=== PATIENT | male | born 1945 | race Caucasian/White ===

== ENCOUNTER 2017-02-06 05:42 | Day surgery (SDC) | payer MEDICAID, OTHER ==
[2017-02-06] VITALS (12 sets, daily range): BP systolic 130–188; BP diastolic 21–89; PULSE 59–70; RESP 16–20; Ht 162.6 cm; Wt 64.0 kg
[~2017-02-06] VITALS: Ht 162.6 cm; Wt 64.0 kg
[~2017-02-06 05:42] MED LIST: ASPI-664 PO; DOCU-159 PO; ENAL5TAB PO
[2017-02-06 06:33] LABS: ADD SCAN DIFF NO
[2017-02-06] MEDS ORDERED: ASPI81TA3 PO (06:35)
[2017-02-06] MEDS ORDERED: CILO50TA PO (06:35)
[2017-02-06] MEDS ORDERED: AMLO2.5T78 PO (06:35)
[2017-02-06 06:42] LABS: BASOPHIL # 0.1 10^3/ul (0.0-0.1); EOSINOPHILS # 0.3 10^3/ul (0.0-0.5); EOSINOPHILS % 2.5 % (0.0-7.0); HEMATOCRIT 42.5 % (42.0-52.0); HEMOGLOBIN 14.1 g/dl (14.0-18.0); LYMPHOCYTES # 3.8 10^3/ul (0.8-2.9); LYMPHOCYTES % 35.7 % (15.0-51.0); MEAN CORPUSCULAR HEMOGLOBIN 30.6 pg (29.0-33.0); MEAN CORPUSCULAR HGB CONC 33.2 g/dl (32.0-37.0); MEAN CORPUSCULAR VOLUME 92.2 fl (82.0-101.0); MEAN PLATELET VOLUME 11.7 fl (7.4-10.4); MONOCYTE # 0.9 10^3/ul (0.3-0.9); MONOCYTES % 8.4 % (0.0-11.0); NEUTROPHIL # 5.5 10^3/ul (1.6-7.5); PLATELET COUNT 213 10^3/UL (140-415); RED BLOOD COUNT 4.61 10^6/ul (4.70-6.10); RED CELL DISTRIBUTION WIDTH 13.3 % (11.5-14.5); WHITE BLOOD COUNT 10.5 10^3/ul (4.8-10.8)
[2017-02-06] MEDS ORDERED: SOD CHLORIDE 0.9% 1,000 ML IV SCH ×2 (07:00→11:35)
[2017-02-06 07:04] LABS: CALCIUM 9.3 mg/dl (8.4-10.2); CREATININE 0.97 mg/dl (0.61-1.24); POTASSIUM 4.6 mmol/L (3.5-5.1)
[2017-02-06 07:17] LABS: INR 0.98
[2017-02-06 07:24] LABS: PARTIAL THROMBOPLASTIN TIME 37.1 Sec (25.0-35.0)
[2017-02-06] MEDS ORDERED: LIDOCAINE 1% (MDV) 20 ML INJ ONE (08:25)
[2017-02-06] MEDS ORDERED: IODIXANOL LOCM 100 ML BTL ONE ×3 (08:26→11:03)
[2017-02-06] MEDS ORDERED: MIDAZOLAM 1 MG/ML 2 ML INJ ONE (08:26)
[2017-02-06] MEDS ORDERED: FENTAnyl 50 MCG/ML VIAL ONE (08:26)
[2017-02-06] MEDS ORDERED: IODIXANOL LOCM 50 ML BTL ONE (10:02)
[2017-02-06] MEDS ORDERED: HEPARIN 1000 UNITS/ML 10 ML INJ ONE (10:02)
[2017-02-06] MEDS ORDERED: VERAPAMIL 5 MG INJ ONE (10:07)
[2017-02-06] MEDS ORDERED: NITROGLYCERIN (IC) 100 MCG/ML INJ ONE (10:07)
[2017-02-06] MEDS ORDERED: NITROGLYCERIN 50 MG/D5W (PMX) 250 ML ONE (10:09)
[2017-02-06] MEDS ORDERED: ASPIRIN 325 MG TAB ONE (11:37)
[2017-02-06] MEDS ORDERED: CLOPIDOGREL 300 MG TAB ONE (11:37)
--- NOTE | 2017-02-06 11:38 | PDOCDIS ---
Discharge Instructions CONDITION Patient Condition: Good HOME CARE INSTRUCTIONS: Diet Instructions: Low Fat /Cholesterol ACTIVITY: Activity Restrictions: Avoid heavy lifting (x 4 days) Do not Drive (x 3 days) FOLLOW UP/APPOINTMENTS Appointments Follow up with Dr Zambrano 2-4weeks Follow up with vascular surgeon Dominic Whalen DO February 06, 2017 11:38
[2017-02-06] MEDS ORDERED: ACETAMINOPHEN 325 MG TAB PO PRN (12:00)
[2017-02-06] MEDS ORDERED: ONDANSETRON 4 MG INJ IV PRN (12:00)
[2017-02-06] MEDS ORDERED: AL HYDROX/MG HYDROX/SIMETH 30 ML CUP PO PRN (12:00)
--- NOTE | 2017-02-06 12:56 | CARRPT ---
DATE OF PROCEDURE: 02/06/2017 PROCEDURE: 1. Distal abdominal aortogram and bilateral lower extremity runoff. 2. Bilateral carotid artery angiogram. 3. Third order catheter placement. 4. INTERNET MARKETING DIRECTOR of the left SFA with CSI Orbital Arthrectomy, balloon angioplasty and drug-coated balloon an gioplasty of the mid to distal left SFA. 5. Interpretation and supervision of peripheral and carotid angiogram. 6. Right femoral artery approach. PATIENT HISTORY: This is a 71-year-old male with past medical history of carotid artery disease and peripheral arterial disease with lifestyle limiting claudication, who presents for carotid and lowe r extremity angiogram. FINDINGS: 1. Right innominate demonstrates an 80% proximal stenosis. The right common carotid with a proxima l 100% stenosis reconstitutes in the mid to distal segment of the internal and external carotid. Le ft common carotid demonstrates a mid 20% stenosis, the right external carotid with 10% disease, the right internal carotid with mid 20% stenosis. Cerebral vasculature demonstrates that the left syste m is supplying both hemispheres. 2. Distal abdominal aortogram demonstrated distal aorta with aneurysmal segments. 3. Right side demonstrates ostial common iliac with an 80% stenosis and a mid after the bifurcation of the external and the internal demonstrates the proximal external with a 70% to 80% stenosis wit h an aneurysmal segment proximal and distal to that area of stenosis. Right common femoral demonstr ates 10% stenosis. Right SFA demonstrates a mid 30% stenosis. Right popliteal demonstrates 10% lurdes nosis. The right anterior tibial is a small caliber vessel and diffusely diseased proximally, 90% d iffuse stenosis. The right peroneal and posterior tibial are patent with mild diffuse disease dista lly giving flow down to the ankle as well as helping to reconstitute the right AT. 3. Left lower extremity side: Left common iliac with a proximal 30% stenosis. Left external iliac with no significant disease seen. Left common femoral with no significant disease seen. Left SFA demonstrates a mid to distal calcified diffuse area of stenosis, worst being 90%. Left popliteal wi th 10% diffuse stenosis. Left AT with proximal 80% stenosis, peroneal and posterior tibial with mil d diffuse disease with 2 to 3-vessel runoff to the ankle. DESCRIPTION OF PROCEDURE: The patient was brought in to the lab specialist after informed consent. Right femoral artery access was obtained using ultrasound guidance with a micropuncture needle and a 5-Fr ench sheath was placed. We next did segmental DSA imaging of the right lower extremity. We next we nt up with a 5-Vietnamese JR4 diagnostic catheter and engaged the right innominate as well as the left c ommon carotid, sequentially. Angiogram was performed. There was evidence of 100% occlusion of the right common carotid. Afterwards, we did a distal abdominal aortogram using an Omni Flush 5-Vietnamese catheter. Selective shots were done of the right iliac given this area of stenosis was seen too as well. We next intended going up and over to the left side, but unable with an Omni Flush and a Glid ewire. We next used a rim catheter and with much difficulty, we were able to go up and over down th e left iliac to the left common femoral artery. We next did sequential imaging of the left lower ex tremity down to the ankle. There was evidence of severe stenosis noted in the mid SFA. We next swi tched out for a stiff Glidewire down to the left popliteal. We next took out our rim catheter and t hen switched out our 5-Vietnamese sheath for a 6-Vietnamese x 55 Destination sheath down to the left SFA. S arvind our wire was in the left distal SFA/popliteal, we used an exchange length catheter over the lef t SFA wire. We then switched out for a Viper CSI wire. Heparin was given for anticoagulation prior to this. Our wire was parked in the mid calf. We next used a 1.5 solid CSI and multiple runs were performed in the calcified mid SFA region. We next used a 4.0 balloon and performed angioplasty wi th prolonged inflations. Afterwards, we used a 5 mm x 120 mm Lutonix drug-coated balloon in that re gion prolonged inflation. Post drug-coated balloon demonstrated 10% residual stenosis with no evide nce of dissection with good flow seen and preserved 3-vessel runoff distally. We next pulled our wi re out and catheter. We brought our sheath up to the right common iliac and did a repeat angiogram in that region to further evaluate the right common iliac ostial lesion. We next switched out for a 6-Vietnamese sheath. Then, a Perclose closure device was used in the right femoral artery. The patien t tolerated the procedure well with no immediate complications. DIAGNOSES: 1. Severe peripheral arterial disease. 2. Carotid artery disease. 3. Lifestyle limiting claudication. ESTIMATED BLOOD LOSS: None. BLOOD LOSS: Minimal. RECOMMENDATIONS: Aggressive medical management, risk factor modification with smoking cessation and dual-antiplatelet therapy. Plan for staged intervention of the right external and common iliac. Dictated By: MANISH VELASCO/BRYCE Conf#: [id number] DID#: [id number]
== END 2017-02-06 19:00 | disposition home or self-care (01) ==
LOC: SDS 05:42 → GIL 05:42 → SDS 19:00
PROVIDERS: ATTEND Internal Medicine Cardiovascular Disease
DX: I73.9 Peripheral vascular disease, unspecified (principal); I65.29 Occlusion and stenosis of unspecified carotid artery
CPT/HCPCS: 37225; 80048; 85025; 85610; 85730; J1644; J2250; J3010; J7030; Q9967; Z7610; 75671; C1714; C1725; C1769; C1887; C1894

== ENCOUNTER 2017-04-12 06:16 | Observation (INO) | payer OTHER ==
[~2017-04-12] VITALS: Ht 165.1 cm; Wt 66.0 kg
[2017-04-12] VITALS (22 sets, daily range): BP systolic 110–180; BP diastolic 55–97; PULSE 60–92; RESP 10–34; Ht 165.1 cm; Wt 66.0 kg
[~2017-04-12 06:16] MED LIST changes: +AMLO2.5T78 PO; +ASPI81TA3 PO; +CILO50TA PO
[2017-04-12] MEDS ORDERED: AMLO5TAB4 PO (07:11)
[2017-04-12] MEDS ORDERED: CLOP75TA27 PO (07:12)
[2017-04-12] MEDS ORDERED: ASPI-664 PO (07:12)
[2017-04-12 07:43] LABS: ADD SCAN DIFF NO
[2017-04-12 07:53] LABS: BASOPHIL # 0.1 10^3/ul (0.0-0.1); EOSINOPHILS # 0.3 10^3/ul (0.0-0.5); EOSINOPHILS % 2.6 % (0.0-7.0); HEMATOCRIT 41.2 % (42.0-52.0); HEMOGLOBIN 13.5 g/dl (14.0-18.0); LYMPHOCYTES # 3.3 10^3/ul (0.8-2.9); LYMPHOCYTES % 33.3 % (15.0-51.0); MEAN CORPUSCULAR HEMOGLOBIN 30.7 pg (29.0-33.0); MEAN CORPUSCULAR HGB CONC 32.8 g/dl (32.0-37.0); MEAN CORPUSCULAR VOLUME 93.6 fl (82.0-101.0); MONOCYTE # 0.8 10^3/ul (0.3-0.9); MONOCYTES % 8.2 % (0.0-11.0); NEUTROPHIL # 5.5 10^3/ul (1.6-7.5); NEUTROPHILS % 54.4 % (39.0-77.0); PLATELET COUNT 177 10^3/UL (140-415); RED CELL DISTRIBUTION WIDTH 13.6 % (11.5-14.5)
[2017-04-12 08:07] LABS: INR 0.95; PARTIAL THROMBOPLASTIN TIME 30.9 Sec (25.0-35.0); PROTIME 12.7 Sec (12.2-14.2)
[2017-04-12] MEDS ORDERED: CLOPIDOGREL 300 MG TAB ONE (08:13)
[2017-04-12] MEDS ORDERED: ASPIRIN 325 MG TAB ONE (08:13)
[2017-04-12] MEDS ORDERED: IODIXANOL LOCM 50 ML BTL ONE (08:36)
[2017-04-12] MEDS ORDERED: HEPARIN 1000 UNITS/ML 10 ML INJ ONE ×2 (08:36→10:02)
[2017-04-12] MEDS ORDERED: LIDOCAINE 1% (MDV) 20 ML INJ ONE (08:36)
[2017-04-12] MEDS ORDERED: MIDAZOLAM 1 MG/ML 2 ML INJ ONE ×2 (08:37→10:49)
[2017-04-12] MEDS ORDERED: FENTAnyl 50 MCG/ML VIAL ONE (08:37)
[2017-04-12 08:58] LABS: CALCIUM 9.5 mg/dl (8.4-10.2); CREATININE 1.03 mg/dl (0.61-1.24); POTASSIUM 4.7 mmol/L (3.5-5.1)
[2017-04-12] MEDS ORDERED: IOHEXOL 350MG/ML 50 ML BTL ONE (10:02)
[2017-04-12] MEDS ORDERED: hydrALAzine 20 MG INJ ONE (10:52)
--- NOTE | 2017-04-12 11:12 | RADRPT ---
Vent Rate: 57 bpm RR Interval: 0 msec PA Interval: 166 msec QRS Duration: 100 msec QT Interval: 406 msec QTC Interval: 395 msec P-R-T Palmer: 69 - 55 - 62 degrees Sinus bradycardia Otherwise normal ECG Electronically Signed By: Mehul Louis [id number]
[2017-04-12] MEDS ORDERED: SOD CHLORIDE 0.9% 1,000 ML IV SCH (11:17)
[2017-04-12] MEDS ORDERED: ONDANSETRON 4 MG INJ IV PRN (11:30)
[2017-04-12] MEDS ORDERED: ACETAMINOPHEN 325 MG TAB PO PRN (11:30)
[2017-04-12] MEDS ORDERED: AL HYDROX/MG HYDROX/SIMETH 30 ML CUP PO PRN (11:30)
--- NOTE | 2017-04-12 11:31 | OPR ---
Date/Time of Note Date/Time of Note DATE: 04/12/17 TIME: 11:19 Operative Report Procedure Date: Apr 12, 2017 Preoperative Diagnosis Peripheral arterial disease Lifestyle limiting claudication Operation Performed Selective peripheral angiogram of the right iliac and distal abdominal aorta First order catheter placement Balloon angioplasty of the ostium of the right common iliac and the mid iliac, covered stenting with an 8 x 37 mm Lifestream balloon expandable covered stent of the ostium of the right iliac, mid iliac stenting with a 8 x 60 self- expanding stent Right femoral artery access Conscious sedation Patient was brought to the Hematology Specialist after informed consent. Using ultrasound guidance and micropuncture, right femoral artery access was obtained. 6 [place] sheath was placed. Angiogram was performed which demonstrated 80% stenosis of the ostium of the right common iliac, and 80-90% stenosis of the right proximal external iliac at the bifurcation of the internal iliac. Heparin was used for anticoagulation. Initially a Glidewire was used to cross the lesions and switched out for an Amplatz. Balloon angioplasty was performed of the ostium of the common iliac and then of the mid iliac. We then upsized to a 7 [place] long sheath. We stented the ostium of the right common iliac with a 8 x 37 balloon expandable covered stent. We next stented the mid iliac overlapping with the previous stent with a 8 x 60 mm self-expanding stent. Both stents were postdilated. There was an excellent angiographic result with less than 10 % residual stenosis. There was significant improvement in gradients across the region. We next used a Perclose for hemostasis in the right femoral artery. Patient tolerated procedure well with no immediate complications. Anesthesia: other (Conscious sedation) Estimated Blood Loss: minimal Complications: None Pt Condition Post Procedure: stable Dominic Whalen DO Apr 12, 2017 11:30
--- NOTE | 2017-04-12 11:34 | PDOCDIS ---
Discharge Instructions CONDITION Patient Condition: Good HOME CARE INSTRUCTIONS: Diet Instructions: Low Fat /Cholesterol ACTIVITY: Activity Restrictions: Slowly Increase Activity Avoid heavy lifting (For 3 days) Do not Drive (For 3 days) Dominic Whalen DO Apr 12, 2017 11:34
[2017-04-12] MEDS: AMLODIPINE 5 MG TAB PO SCH (12:19)
[2017-04-12] MEDS ORDERED: hydrALAzine 20 MG INJ IV PRN (14:00)
--- NOTE | 2017-04-12 17:57 | HP ---
Date/Time of Note Date/Time of Note DATE: 04/12/17 TIME: 17:34 Assessment/Plan VTE Prophylaxis VTE Prophylaxis Intervention: other Lines/Catheters IV Catheter Type (from Nrsg): Peripheral IV Assessment/Plan Assessment/Plan Peripheral arterial disease Selective peripheral angiogram of the right iliac and distal abdominal aorta on 04/12/[address] Whalen - per Dr Whalen - admit to tele - admission orders done - On Plavix. ASA - cont to monitor right groin site for s/s of bleeding and infection Hypertension- controlled - on Amlodipine Coronary Artery Disease Smoker - provide smoking cessation SP Hernia Repair SP Cardiac Cath Jose R Herrera/staff/patient HPI/ROS Admit Date/Time Admit Date/Time Hx of Present Illness This is a 72-year-old male with past medical history of carotid artery disease and peripheral arterial disease with lifestyle limiting claudication. Patient is admitted for Selective peripheral angiogram of the right iliac and distal abdominal aorta by Dr Whalen. Patient is alert/awake, denies any chest pain, shortness of breath, fever, chills. All Qs answered. Family at bed side. Patient is admitted under Dr Caraballo on Tele floor PMH/Family/Social Past Medical History Peripheral arterial disease Selective peripheral angiogram of the right iliac and distal abdominal aorta on 04/12/[address] Whalen Hypertension Coronary Artery Disease Smoker Past Surgical History SP Hernia Repair SP Cardiac Cath Social History Smoking Status: Current every day smoker Drug Use: none Exam/Review of Systems Vital Signs Vitals Vital Signs Date Time Temp Pulse Resp B/P Pulse Ox O2 Delivery O2 Flow Rate FiO2 04/12/17 16:51 98.0 60 18 126/60 98 04/12/17 16:00 Room Air Exam Constitutional: alert, oriented, well developed Respiratory: clear to auscultation, normal air movement Cardiovascular: nl pulses, regular rate and rhythm Gastrointestinal: non-tender Musculoskeletal: nl extremities to inspection Extremities: normal pulses Neurological: nl mental status, nl speech Labs Result Diagram: 04/12/17 0730 04/12/17 0730 Medications Medications Current Medications Miscellaneous Information (* Miscellaneous Pharmacy Order) HOLD all METFORMIN ... ONCE XX ; Start 04/12/17 at 11:30; Stop 04/14/17 at 11:29 Acetaminophen (Tylenol Tab) 650 mg Q4H PRN PO NON-CARDIAC PAIN LEVEL (1-3); Start 04/12/17 at 11:30 Al Hydrox/Mg Hydrox/Simethicone (Mag-Al Plus) 30 ml Q4H PRN PO GASTROINTESTINAL UPSET; Start 04/12/17 at 11:30 Ondansetron HCl (Zofran Inj) 4 mg Q4H PRN IV NAUSEA AND/OR VOMITING; Start 04/12 at 11:30 Amlodipine Besylate (Norvasc) 5 mg DAILY PO Last administered on 04/12/17t 12:19 ; Admin Dose 5 MG; Start 04/12/17 at 12:00 Hydralazine HCl (Apresoline) 10 mg Q6H PRN IV sbp>150; Start 04/12/17 at 14:00 Aspirin (Aspirin) 81 mg DAILY PO ; Start 04/13/17 at 09:00 Clopidogrel Bisulfate (plaVIX) 75 mg DAILY PO ; Start 04/13/17 at 09:00 Atorvastatin Calcium (Lipitor) 20 mg HS PO ; Start 04/12/17 at 21:00 CHINEDU MCKINNEY Apr 12, 2017 17:44
[2017-04-12] MEDS ORDERED: ATORVASTATIN 20 MG TAB PO SCH (21:00)
[2017-04-12] MEDS ORDERED: ZOLPIDEM 5 MG TAB PO PRN (21:30)
[2017-04-13] VITALS (7 sets, daily range): BP systolic 129–142; BP diastolic 62–72; PULSE 62–71; RESP 18–71
[2017-04-13 06:58] LABS: ADD SCAN DIFF NO
[2017-04-13 07:12] LABS: BASOPHIL # 0.1 10^3/ul (0.0-0.1); BASOPHILS % 0.5 % (0.0-2.0); EOSINOPHILS # 0.1 10^3/ul (0.0-0.5); EOSINOPHILS % 0.6 % (0.0-7.0); HEMATOCRIT 39.2 % (42.0-52.0); HEMOGLOBIN 13.1 g/dl (14.0-18.0); LYMPHOCYTES # 2.5 10^3/ul (0.8-2.9); MEAN CORPUSCULAR HEMOGLOBIN 30.9 pg (29.0-33.0); MEAN CORPUSCULAR HGB CONC 33.4 g/dl (32.0-37.0); MEAN CORPUSCULAR VOLUME 92.5 fl (82.0-101.0); MEAN PLATELET VOLUME 12.3 fl (7.4-10.4); MONOCYTES % 6.6 % (0.0-11.0); NEUTROPHIL # 11.9 10^3/ul (1.6-7.5); NEUTROPHILS % 75.9 % (39.0-77.0); PLATELET COUNT 175 10^3/UL (140-415); RED BLOOD COUNT 4.24 10^6/ul (4.70-6.10); RED CELL DISTRIBUTION WIDTH 13.6 % (11.5-14.5); WHITE BLOOD COUNT 15.7 10^3/ul (4.8-10.8)
[2017-04-13 07:45] LABS: CALCIUM 9.4 mg/dl (8.4-10.2); CREATININE 0.9 mg/dl (0.61-1.24)
[2017-04-13 07:49] LABS: POTASSIUM 5.3 mmol/L (3.5-5.1)
[2017-04-13] MEDS: AMLODIPINE 5 MG TAB PO SCH (08:47)
[2017-04-13] MEDS ORDERED: ASPIRIN 81 MG TAB PO SCH (09:00)
[2017-04-13] MEDS ORDERED: CLOPIDOGREL 75 MG TAB PO SCH (09:00)
--- NOTE | 2017-04-13 10:18 | CONS ---
Date/Time of Note Date/Time of Note DATE: 04/13/17 TIME: 10:11 Assessment/Plan Assessment/Plan Additional Assessment/Plan Lifestyle limiting claudication with severe peripheral arterial disease status post stenting to right iliac Hypertension -Patient status post intervention. Right groin appears stable with no further oozing and stable hemoglobin. DC home with continuing dual antiplatelet therapy and antihypertensive medications. Consultation Date/Type/Reason Admit Date/Time Apr 12, 2017 at 15:11 Initial Consult Date Type of Consultation: cv 24 HR Interval Summary Free Text/Dictation Patient doing well, no groin pain, dizziness or lightheadedness Exam/Review of Systems Vital Signs Vitals Vital Signs Date Time Temp Pulse Resp B/P Pulse Ox O2 Delivery O2 Flow Rate FiO2 04/13/17 09:39 70 04/13/17 07:26 98.2 19 140/72 98 04/12/17 16:00 Room Air Intake and Output 04/12/17 04/12/17 04/13/17 15:00 23:00 07:00 Intake Total 590 ml 500 ml Output Total 500 ml 550 ml Balance 90 ml -50 ml Exam No apparent distress Constitutional: alert, oriented Neck: supple Respiratory: clear to auscultation, normal air movement Cardiovascular: other (S1-S2 heard), regular rate and rhythm Gastrointestinal: bowel sounds, non-tender, soft Extremities: other (Right groin is soft, +2 femoral artery pulse, no ecchymosis , small minimal hematoma, no lower extremity edema) Results Result Diagram: 04/13/17 0645 04/13/17 0645 Results 24 hrs Laboratory Tests Test 04/13/17 06:45 White Blood Count 15.7 #H Red Blood Count 4.24 L Hemoglobin 13.1 L Hematocrit 39.2 L Mean Corpuscular Volume 92.5 Mean Corpuscular Hemoglobin 30.9 Mean Corpuscular Hemoglobin Concent 33.4 Red Cell Distribution Width 13.6 Platelet Count 175 Mean Platelet Volume 12.3 H Neutrophils % 75.9 Lymphocytes % 16.0 Monocytes % 6.6 Eosinophils % 0.6 Basophils % 0.5 Nucleated Red Blood Cells % 0.0 Neutrophils # 11.9 H Lymphocytes # 2.5 Monocytes # 1.0 H Eosinophils # 0.1 Basophils # 0.1 Nucleated Red Blood Cells # 0.0 Sodium Level 139 Potassium Level 5.3 H Chloride Level 99 Carbon Dioxide Level 29 Anion Gap 16 Blood Urea Nitrogen 14 Creatinine 0.90 Glucose Level 128 Calcium Level 9.4 Magnesium Level 1.6 L Medications Medications Current Medications Miscellaneous Information (* Miscellaneous Pharmacy Order) HOLD all METFORMIN ... ONCE XX ; Start 04/12/17 at 11:30; Stop 04/14/17 at 11:29 Acetaminophen (Tylenol Tab) 650 mg Q4H PRN PO NON-CARDIAC PAIN LEVEL (1-3); Start 04/12/17 at 11:30 Al Hydrox/Mg Hydrox/Simethicone (Mag-Al Plus) 30 ml Q4H PRN PO GASTROINTESTINAL UPSET; Start 04/12/17 at 11:30 Ondansetron HCl (Zofran Inj) 4 mg Q4H PRN IV NAUSEA AND/OR VOMITING; Start 04/12 at 11:30 Amlodipine Besylate (Norvasc) 5 mg DAILY PO Last administered on 04/13/17 08:47 ; Admin Dose 5 MG; Start 04/12/17 at 12:00 Hydralazine HCl (Apresoline) 10 mg Q6H PRN IV sbp>150; Start 04/12/17 at 14:00 Aspirin (Aspirin) 81 mg DAILY PO Last administered on 04/13/17 08:47; Admin Dose 81 MG; Start 04/13/17 at 09:00 Clopidogrel Bisulfate (plaVIX) 75 mg DAILY PO Last administered on 04/13/17 08: 47; Admin Dose 75 MG; Start 04/13/17 at 09:00 Atorvastatin Calcium (Lipitor) 20 mg HS PO Last administered on 04/12/17 21:12 ; Admin Dose 20 MG; Start 04/12/17 at 21:00 Zolpidem Tartrate (Ambien) 5 mg HS PRN PO INSOMNIA Last administered on 22:12; Admin Dose 5 MG; Start 04/12/17 at 21:30 Dominic Whalen DO Apr 13, 2017 10:17
--- NOTE | 2017-04-13 10:32 | DS ---
Date/Time of Note Date/Time of Note DATE: 04/13/17 TIME: 10:24 Discharge Summary Admission/Discharge Info Admit Date/Time Apr 12, 2017 at 15:11 Discharge Date/Time Discharge Diagnosis Lifestyle limiting claudication with severe peripheral arterial disease, status post stenting to right iliac Hypertension Tobacco dependence Patient Condition: Good Hx of Present Illness This is a 72-year-old male with past medical history of carotid artery disease and peripheral arterial disease with lifestyle limiting claudication. Patient is admitted for selective peripheral angiogram of the right iliac and distal abdominal aorta by Dr Whalen. Hospital Course - Lifestyle limiting claudication with severe peripheral arterial disease status post stenting to right iliac. Patient underwent selective peripheral angiogram of the right iliac and distal abdominal aorta, balloon angioplasty of the ostium of the right common iliac and the mid iliac, stenting with an 8 x 37 mm Lifestream balloon expandable covered stent of the ostium of the right iliac, mid iliac stenting with a 8 x 60 self-expanding stent on 04/12/17. Patient is continued on aspirin and Plavix. Patient had minimal pain and was able to ambulate. Surgical incisions site with no bleeding. patient was discharged home after cardiology clearance. - Hypertension, patient is continued on Norvasc for blood pressure control. -Ongoing tobacco use, cessation is strongly advised. Home Meds Reported Medications Clopidogrel Bisulfate (Clopidogrel) 75 Mg Tablet, 75 MG PO DAILY, #30 TAB 04/12/17 Aspirin (Low Dose Aspirin) 81 Mg Tablet.dr, 81 MG PO DAILY, #30 TAB 04/12/17 Amlodipine Besylate* (Norvasc*) 5 Mg Tablet, 5 MG PO DAILY, TAB 04/12/17 Discontinued Reported Medications Aspirin* (Aspirin* Chew) 81 Mg Tab.chew, 81 MG PO DAILY, TAB.CHEW 02/06/17 Amlodipine Besylate* (Amlodipine Besylate*) 2.5 Mg Tablet, 5 MG PO DAILY, #30 TAB 02/06/17 Cilostazol* (Cilostazol*) 50 Mg Tablet, 50 MG PO BID, TAB 02/06/17 Enalapril Maleate* (Enalapril Maleate*) 5 Mg Tablet, 5 MG PO DAILY, TAB 07/01/15 Docusate Sodium* (Docusate Sodium*) 100 Mg Capsule, 100 MG PO DAILY, CAP 07/01/15 Aspirin* (Aspirin* EC) 81 Mg Tablet.dr, 81 MG PO DAILY, TAB 07/01/15 Follow-up Plan Follow-up with Dr. Whalen in 2 weeks Primary Care Provider Felicia Lou MD Time spent on discharge: < 30 minutes Pending Labs Laboratory Tests Test 04/13/17 06:45 White Blood Count 15.710^3/ul (4.8-10.8) Red Blood Count 4.2410^6/ul (4.70-6.10) Hemoglobin 13.1g/dl (14.0-18.0) Hematocrit 39.2% (42.0-52.0) Mean Corpuscular Volume 92.5fl (82.0-101.0) Mean Corpuscular Hemoglobin 30.9pg (29.0-33.0) Mean Corpuscular Hemoglobin Concent 33.4g/dl (32.0-37.0) Red Cell Distribution Width 13.6% (11.5-14.5) Platelet Count 33406^3/UL (140-415) Mean Platelet Volume 12.3fl (7.4-10.4) Neutrophils % 75.9% (39.0-77.0) Lymphocytes % 16.0% (15.0-51.0) Monocytes % 6.6% (0.0-11.0) Eosinophils % 0.6% (0.0-7.0) Basophils % 0.5% (0.0-2.0) Nucleated Red Blood Cells % 0.0/100WBC (0.0-0.0) Neutrophils # 11.910^3/ul (1.6-7.5) Lymphocytes # 2.510^3/ul (0.8-2.9) Monocytes # 1.010^3/ul (0.3-0.9) Eosinophils # 0.110^3/ul (0.0-0.5) Basophils # 0.110^3/ul (0.0-0.1) Nucleated Red Blood Cells # 0.010^3/ul (0.0-0.0) Sodium Level 139mmol/L (135-144) Potassium Level 5.3mmol/L (3.5-5.1) Chloride Level 99mmol/L (97-110) Carbon Dioxide Level 29mmol/L (21-31) Anion Gap 16 (8-16) Blood Urea Nitrogen 14mg/dl (7-20) Creatinine 0.90mg/dl (0.61-1.24) Glucose Level 128mg/dl (70-220) Calcium Level 9.4mg/dl (8.4-10.2) Magnesium Level 1.6mg/dl (1.7-2.5) SHAISTA MONTE Apr 13, 2017 10:32
== END 2017-04-13 11:32 | disposition home or self-care (01) ==
LOC: SDS 06:16 → CCL 06:17 → MS4 15:11 → SDS 21:05
PROVIDERS: ADMIT Internal Medicine Cardiovascular Disease; ATTEND Internal Medicine Cardiovascular Disease
DX: I73.9 Peripheral vascular disease, unspecified (principal); I25.10 Atherosclerotic heart disease of native coronary artery without angina pectoris; F17.200 Nicotine dependence, unspecified, uncomplicated
CPT/HCPCS: 37221; 75630; 80048; 83735; 85025; 85610; 85730; 93005; C1725; C1769; C1875; C1894; J0360; J1644; J2250; J3010; Q9967; Z7500; Z7610; G0378